=== PATIENT | male | born 1995 | race African-American/Black ===

== ENCOUNTER 2018-10-11 13:25 | Emergency (ER) | payer MEDICAID ==
[~2018-10-11] VITALS: Ht 180.3 cm; Wt 82.0 kg
[2018-10-11 13:34] VITALS: BP 148/78
== END 2018-10-11 17:51 | disposition left against medical advice (07) ==
LOC: ER 13:25
DX: Z53.21 Procedure and treatment not carried out due to patient leaving prior to being seen by health care provider (principal)

== ENCOUNTER 2024-04-24 19:54 | Emergency (ER) | payer MEDICAID, OTHER ==
[~2024-04-24] VITALS: Ht 180.3 cm; Wt 91.0 kg
[2024-04-24 19:58] VITALS: O2SAT 98
[2024-04-24 20:06] VITALS: BP 115/85; PULSE 77; RESP 16; TEMP 98.3; O2SAT 77
[2024-04-24] MEDS ORDERED: CLOT15CR27 TP (22:04)
== END 2024-04-24 22:38 | disposition home or self-care (01) ==
LOC: ER 19:54
DX: B35.4 Tinea corporis (principal); F12.10 Cannabis abuse, uncomplicated
CPT/HCPCS: 99282